=== PATIENT | female | born 1985 | race Caucasian/White ===

== ENCOUNTER → 2016-08-04 | Outpatient (CLI) | payer BC ==
[~2016-08-04] MED LIST: ACHYD1T PO; DCS100C PO; IBP800T PO; METH4TAB PO; NF-METHYLP PO
--- NOTE | 2016-08-04 19:41 | Diagnostic Imaging Report ---
EXAMINATION: OB ultrasound. INDICATION: Followup spine and cord insertion. COMPARISON: 07/13/16. FINDINGS: The placenta is posterior. No placenta previa. The heart rate is 133 beats per minute. The cord insertion visualization is limited because of adjacent limb and position with no definite abnormality. The spine demonstrates no definite abnormality. IMPRESSION: The spine and cord insertion demonstrate no definite abnormality. Dictated by: Dictated on workstation # [id number]
== END ==
LOC: RAD 14:32
PROVIDERS: ATTEND Family Medicine
DX: Z36 Encounter for antenatal screening of mother (principal); Z3A.00 Weeks of gestation of pregnancy not specified
CPT/HCPCS: 76816

== ENCOUNTER 2016-11-28 17:35 | Inpatient (IN) | payer BC ==
[~2016-11-28] VITALS: Ht 160 cm; Wt 61.9 kg
[2016-11-28] VITALS (16 sets, daily range): BP systolic 92–133; BP diastolic 51–81
[2016-11-28] MEDS ORDERED: D5 LR IV SOLUTION 1,000 ML IV SCH (18:14)
[2016-11-28] MEDS ORDERED: MINERAL OIL CONCENTRATE 99.9% 15 ML UDC TOP PRN (18:15)
[2016-11-28 18:21] LABS: BASOPHILS % (AUTO) 0 % (0-10); EOSINOPHILS # (AUTO) 0.3 10^3/uL (0.0-0.3); EOSINOPHILS % (AUTO) 2 % (0-10); LYMPHOCYTES # (AUTO) 2.7 X 10^3 (1.0-4.0); LYMPHOCYTES % (AUTO) 16 % (12-44); MEAN CORPUSCULAR HEMOGLOBIN 31 PG (25-34); MEAN CORPUSCULAR HGB CONC 33 G/DL (32-36); MEAN CORPUSCULAR VOLUME 93 FL (80-99); MEAN PLATELET VOLUME 9.9 FL (7.4-10.4); MONOCYTES # (AUTO) 0.8 X 10^3 (0.0-1.0); MONOCYTES % (AUTO) 5 % (0-12); NEUTROPHILS # (AUTO) 13.2 X 10^3 (1.8-7.8); NEUTROPHILS % (AUTO) 78 % (42-75); PLATELET COUNT 365 10^3/uL (130-400); RED BLOOD COUNT 3.94 10^6/uL (4.35-5.85)
[2016-11-28] MEDS ORDERED: LACTATED RINGERS 1,000 ML IV ONE (18:38)
[2016-11-28] MEDS ORDERED: EPIDURAL (SUFENTA 0.6MCG/ML BUPIVA 0.125%) 100 ML BAG EPI SCH (18:45)
[2016-11-28] MEDS ORDERED: CATHETER FLUSH 10 ML SYR IV PRN (18:45)
[2016-11-28] MEDS ORDERED: NALOXONE 0.4 MG/ML 1 ML (NARCAN) VIAL IV PRN (18:45)
[2016-11-28] MEDS ORDERED: MEPIVACAINE (CARBOCAINE) 2% 50 ML VIAL ONE (19:12)
--- NOTE | 2016-11-28 19:24 | History & Physical-OB ---
OB - Chief Complaint & HPI Date Date of Admission: Date of Admission: November 28, 2016 at 17:50 Chief Complaint/History OB-Reason for Admission/Chief: Rupture of Membranes Hx : 3 Hx Para: 2 Expected Date of Delivery: December 10, 2016 Gestational Age in Weeks: 38 Gestational Age in Days: 2 Admission Nurse Assessment Rev: Yes History of Labs GBS negative Allergies and Home Medications Allergies Coded Allergies: No Known Drug Allergies (Unverified , 01/05/12) Home Medications Docusate Sodium 100 Mg Cap, 100 MG PO BID, #60 Prescribed by: MAUREEN SARAVIA on 08/02/14 0903 Hydrocodone Bit/Acetaminophen 1 Ea Tab, 1-2 EA PO Q4H PRN for PAIN, #60 Prescribed by: MAUREEN SARAVIA on 08/02/14 0903 Ibuprofen 800 Mg Tab, 800 MG PO Q6H, #60 Prescribed by: MAUREEN SARAVIA on 08/02/14 0903 Methylprednisolone 4 Mg Tablet, 8-12 MG PO DAILY, (Reported) Methylprednisolone 4 Mg/Dose-Pack Tab.ds.pk, 0 PO UD, #1 Prescribed by: MAUREEN SARAVIA on 08/02/14 0903 OB - History Hx of Present Care: Yes Ultrasounds: Normal mid trimester US Obstetrical Complications: None Medical Complications: None Obstetrical History Hx : 3 Hx Para: 2 Hx Termination: No Hx Total # of Abortions (Spona: 0 Hx Multiple Gestation: No Hx Stillbirth: No Hx Complication: Yes (Placental eversion, precip delivery) Hx Induced Hypertens: No Hx Maternal Gestational Diabet: No Delivery History Hx Dystocia: No Hx Large For Gestational Age I: No Hx Small for Gestational Age I: No Hx Section: Yes Hx Vaginal Delivery Post C-Sec: No Hx Blood Disorders: No Adverse Rxn to Tranfusion: No Patient Past Medical History No chronic medical problems Social History/Family History HIV/AIDS: No Recent Infectious Disease Expo: No Sexually Transmitted Disease: Yes (HPV) Alcohol Use: Denies Use Recreational Drug Use: No Immunizations Hepatitis A: Yes Hepatitis B: Yes Date of Influenza Vaccine: Aug 02, 2014 OB - Admission Exam Physical Exam Vitals: Vital Signs 11/28/16 11/28/16 17:35 18:25 Temp 97.8 Pulse 86 Resp 18 B/P (MAP) 118/74 O2 Delivery Room Air HEENT: Moist Membranes Heart: Rhythm Normal Lungs: Clear Abdomen: Gravid Extremities: Normal Cervical Dilatation: 4cm Effacement: 50% Station: -1 Membranes: Ruptured Amniotic Fluid: Clear Heart Rate: 130's Accelerations: Accelerations Present Short Term Variability: Present Group Home Variability: Average (6-25) Contractions on Admission: 6-10 Minutes Apart Labs Laboratory Tests Test 11/28/16 18:00 Range/Units White Blood Count 17.0 H 4.3-11.0 10^3/uL Red Blood Count 3.94 L 4.35-5.85 10^6/uL Hemoglobin 12.1 11.5-16.0 G/DL Hematocrit 37 35-52 % Mean Corpuscular Volume 93 80-99 FL Mean Corpuscular Hemoglobin 31 25-34 PG Mean Corpuscular Hemoglobin Concent 33 32-36 G/DL Red Cell Distribution Width 13.0 10.0-14.5 % Platelet Count 365 130-400 10^3/uL Mean Platelet Volume 9.9 7.4-10.4 FL Neutrophils (%) (Auto) 78 H 42-75 % Lymphocytes (%) (Auto) 16 12-44 % Monocytes (%) (Auto) 5 0-12 % Eosinophils (%) (Auto) 2 0-10 % Basophils (%) (Auto) 0 0-10 % Neutrophils # (Auto) 13.2 H 1.8-7.8 X 10^3 Lymphocytes # (Auto) 2.7 1.0-4.0 X 10^3 Monocytes # (Auto) 0.8 0.0-1.0 X 10^3 Eosinophils # (Auto) 0.3 0.0-0.3 10^3/uL Basophils # (Auto) 0.0 0.0-0.1 10^3/uL OB - Assessment/Plan/Diagnosis Assessment Assessment: rupture of membranes (at 38w2d ) Plan Plan: Other (labor management) Other Plan Patient desires epidural OSCAR HERNANDEZ MD November 28, 2016 19:24
[2016-11-28] MEDS ORDERED: fentaNYL INJECTION 100 MCG/2 ML AMP ONE (19:28)
[2016-11-28] MEDS ORDERED: OXYTOCIN/NORMAL SALINE 500 ML IV ONE (19:42)
[2016-11-28] MEDS ORDERED: OXYTOCIN/NORMAL SALINE 500 ML IV SCH ×2 (19:48→21:58)
--- NOTE | 2016-11-28 21:56 | OB Labor & Delivery Record ---
L&D History Date of Service Date of Service: November 28, 2016 History Expected Date of Delivery: December 10, 2016 Gestational Age in Weeks: 38 Hx : 3 Hx Para: 2 Complications Events: Routine care Operative Indications (Cesarea: N/A-Vaginal Delivery Intrapartal Events: None L&D Stage1 Stage One Onset of Labor - Date: November 28, 2016 Onset of Labor - Time: 17:00 Monitors and Tracing Monitor Mode: External Heart Rate: 130 Monitor Decelerations: Early Station: -1 Vital Signs VS - Last 72 Hours, by Label 11/28/16 11/28/16 11/28/16 11/28/16 17:35 18:25 19:30 19:45 Temp 97.8 97.0 Pulse 92 86 82 70 Resp 20 18 18 18 B/P (MAP) 130/81 118/74 119/64 118/78 Pulse Ox 98 100 O2 Delivery Room Air Room Air Room Air Room Air 11/28/16 11/28/16 20:00 20:15 Temp 96.9 Pulse 70 70 Resp 18 18 B/P (MAP) 110/69 111/63 Pulse Ox 98 98 O2 Delivery Room Air Room Air Signs of Distress by FHT Signs of Distress no Rupture of Membranes Spontaneous Ruture of Membrane: Yes Amniotic Membrane Rupture Time: 1650 Amniotic Membrane Fluid Desc.: Clear Amniotic Fluid Membrane Tests: Nitrazine Positive Induction/Anesthesia Epidural Cath Placement - Time: 1927 L&D Stage2 Stage Two Stage II Date: November 28, 2016 Stage II Time: 19:42 Monitors and Tracing Monitor Mode: External Heart Rate: 130 Monitor Accelerations: Uniform Monitor Decelerations: Early Coffee Sommelier Variability: Average (6-10) Short Term Variability: Present Position: Left Occiput Anterior Presentation: Vertex Signs of Distress by FHT Signs of Distress no Cord Descript/Complications Cord Vessel Description: 3 Vessels Delivery Type Delivery Method: Spontaneous Vaginal Anterior Shoulder: Left Episiotomy/Perineal Laceration Laceraction(s)/Extensions: No Condition of Infant Delivery 1 minute Comment: 9 5 minute Comment: 9 Condition of Infant Condition of Infant: Living Exam: No Observed Abnormalities Resuscitation Resuscitation: N/A - Spontaneous Resp L&D Stage3 Stage Three Stage III Date: November 28, 2016 Stage III Time: 19:45 Pictocin Pitocin Administration mu/min: 4 Pitocin ml/hr: 4 Placenta Delivery Placenta Delivery: Spontaneous Delivery Summary Summary Vaginal blood loss >500ml: No 200cc Condition of Delivery Examined: Cervix Examined Post Hemorrhage: No Intervention Required none OSCAR HERNANDEZ MD November 28, 2016 21:56
[2016-11-28] MEDS ORDERED: MEASLES,MUMPS,RUBELLA 1 EA INJ SQ ONE (22:00)
[2016-11-28] MEDS ORDERED: WITCH HAZEL(TUCKS) 40 EA JAR TOP PRN (22:00)
[2016-11-28] MEDS ORDERED: BENZOCAINE/MENTHOL (DERMOPLAST) 56 ML CAN TP PRN (22:00)
[2016-11-28] MEDS ORDERED: TETANUS,DIPTH,PERTUSS P/F (BOOSTRIX) 0.5 ML VIAL IM ONE (22:00)
[2016-11-28] MEDS ORDERED: CATHETER FLUSH 10 ML SYR IV SCH (22:00)
[2016-11-28] MEDS: IBUPROFEN 600 MG (MOTRIN) TAB PO SCH (23:10)
[2016-11-29] VITALS: BP 95/47
[2016-11-29] MEDS: CATHETER FLUSH 10 ML SYR IV SCH ×2 (00:28→05:07)
[2016-11-29 04:02] VITALS: BP 84/49
[2016-11-29] MEDS: IBUPROFEN 600 MG (MOTRIN) TAB PO SCH ×3 (05:07→19:17)
[2016-11-29 06:20] LABS: BASOPHILS # (AUTO) 0.1 10^3/uL (0.0-0.1); BASOPHILS % (AUTO) 0 % (0-10); EOSINOPHILS # (AUTO) 0.3 10^3/uL (0.0-0.3); EOSINOPHILS % (AUTO) 2 % (0-10); LYMPHOCYTES % (AUTO) 26 % (12-44); MEAN CORPUSCULAR HEMOGLOBIN 31 PG (25-34); MEAN CORPUSCULAR HGB CONC 33 G/DL (32-36); MEAN CORPUSCULAR VOLUME 94 FL (80-99); MEAN PLATELET VOLUME 9.4 FL (7.4-10.4); MONOCYTES # (AUTO) 0.9 X 10^3 (0.0-1.0); MONOCYTES % (AUTO) 6 % (0-12); NEUTROPHILS % (AUTO) 66 % (42-75); PLATELET COUNT 338 10^3/uL (130-400); RED BLOOD COUNT 3.38 10^6/uL (4.35-5.85); RED CELL DISTRIBUTION WIDTH 12.9 % (10.0-14.5); WHITE BLOOD COUNT 15.3 10^3/uL (4.3-11.0)
--- NOTE | 2016-11-29 07:09 | Progress Note (SOAP) ---
Subjective Subjective/Events-last exam No current complaints. Vaginal bleeding following delivery is very light. Objective Exam Vital Signs Date Time Temp Pulse Resp B/P (MAP) Pulse Ox O2 Delivery O2 Flow Rate FiO2 11/29/16 04:02 97.7 55 18 84/49 97 Room Air 11/29/16 00:00 97.4 60 18 95/47 99 Room Air 11/28/16 23:00 61 18 106/51 Room Air 11/28/16 22:40 68 18 101/51 Room Air 11/28/16 22:25 63 18 109/66 Room Air 11/28/16 22:10 98.6 70 18 114/60 Room Air 11/28/16 21:42 74 18 133/58 Room Air 11/28/16 21:30 78 18 123/58 Room Air 11/28/16 21:15 96.9 63 18 109/71 100 Room Air 11/28/16 21:00 70 18 102/56 98 Room Air 11/28/16 20:45 62 18 92/58 98 Room Air 11/28/16 20:30 71 18 95/61 99 Room Air 11/28/16 20:15 96.9 70 18 111/63 98 Room Air 11/28/16 20:00 70 18 110/69 98 Room Air 11/28/16 19:45 70 18 118/78 100 Room Air 11/28/16 19:30 97.0 82 18 119/64 98 Room Air 11/28/16 18:25 86 18 118/74 Room Air 11/28/16 17:35 97.8 92 20 130/81 Room Air I & O 11/29/16 07:00 Intake Total 1700 ml Output Total 700 ml Balance 1000 ml Capillary Refill : Other comments uterus firm Results Lab Laboratory Tests 11/28/16 18:00: White Blood Count 17.0H, Red Blood Count 3.94L, Hemoglobin 12.1, Hematocrit 37, Mean Corpuscular Volume 93, Mean Corpuscular Hemoglobin 31, Mean Corpuscular Hemoglobin Concent 33, Red Cell Distribution Width 13.0, Platelet Count 365, Mean Platelet Volume 9.9, Neutrophils (%) (Auto) 78H, Lymphocytes (%) (Auto) 16 , Monocytes (%) (Auto) 5, Eosinophils (%) (Auto) 2, Basophils (%) (Auto) 0, Neutrophils # (Auto) 13.2H, Lymphocytes # (Auto) 2.7, Monocytes # (Auto) 0.8, Eosinophils # (Auto) 0.3, Basophils # (Auto) 0.0 11/29/16 06:10: White Blood Count 15.3H, Red Blood Count 3.38L, Hemoglobin 10.3L, Hematocrit 32L , Mean Corpuscular Volume 94, Mean Corpuscular Hemoglobin 31, Mean Corpuscular Hemoglobin Concent 33, Red Cell Distribution Width 12.9, Platelet Count 338, Mean Platelet Volume 9.4, Neutrophils (%) (Auto) 66, Lymphocytes (%) (Auto) 26, Monocytes (%) (Auto) 6, Eosinophils (%) (Auto) 2, Basophils (%) (Auto) 0, Neutrophils # (Auto) 10.0H, Lymphocytes # (Auto) 4.0, Monocytes # (Auto) 0.9, Eosinophils # (Auto) 0.3, Basophils # (Auto) 0.1 Assessment/Plan Assessment/Plan Assess & Plan/Chief Complaint 1. S/P day 1 -routine PP care orders. -suspect dc in the am of 11/30 Clinical Quality Measures DVT/VTE Risk/Contraindication: Risk Factor Score Per Nursin RFS Level Per Nursing on Admit: 2=Moderate OSCAR HERNANDEZ MD November 29, 2016 07:09
[2016-11-29 08:15] VITALS: BP 110/72
[2016-11-29] MEDS: HYDROcodone/APAP 5 MG/325 MG (LORTAB) TAB PO PRN ×2 (10:09→16:42)
[2016-11-29] MEDS: PRENATAL VITAMIN 1 EA TAB PO SCH (10:09)
--- NOTE | 2016-11-29 12:01 | Anesthesia-Regional Post-Op ---
Regional Patient Condition Mental Status: Alert, Oriented x3 Circulation: Same as Pre-Op Headache: Absent Sensation: Full Recovery Motor Block: Absent Post Op Complications Complications None Follow Up Care/Instructions Patient Instructions None needed. Anesthesia/Patient Condition Patient is doing well, no complaints, stable vital signs, no apparent adverse anesthesia problems. No complications reported per nursing. KOSTAS GARNER CRNA November 29, 2016 12:01
[2016-11-29 12:47] VITALS: BP 109/76
[2016-11-29 20:45] VITALS: BP 114/74
[2016-11-30 01:38] VITALS: BP 95/60
[2016-11-30] MEDS: IBUPROFEN 600 MG (MOTRIN) TAB PO SCH ×2 (01:38→08:44)
[2016-11-30] MEDS: HYDROcodone/APAP 5 MG/325 MG (LORTAB) TAB PO PRN (06:53)
--- NOTE | 2016-11-30 07:31 | Discharge Summary ---
Diagnosis/Chief Complaint Date of Admission November 28, 2016 at 17:50 Date of Discharge November 30, 2016 Discharge Date: November 30, 2016 Admission Diagnosis Admission Diagnosis 1. Intrauterine at 38 weeks Discharge Diagnosis 1. Intrauterine at 38 weeks gestation Reason Hospital Visit 31-year-old 3 now term 3 female who initially presented at 38 weeks 2 days gestation with ruptured membranes. She was noted to be rafael and ultimately was admitted for her labor. Discharge Summary-OBS Procedures 1. Epidural per anesthesia 2. Spontaneous vaginal delivery Discharge Physical Examination Allergies: Coded Allergies: No Known Drug Allergies (Unverified , 01/05/12) Vitals & I&Os Vital Signs Date Time Temp Pulse Resp B/P (MAP) Pulse Ox O2 Delivery O2 Flow Rate FiO2 11/30/16 01:38 97.3 69 18 95/60 97 Room Air General Appearance: No Acute Distress Respiratory: Clear to Auscultation Cardiovascular: Regular Rate Abdominal: Soft (with uterus firm) Hospital Course patient was admitted on November 28, 2016 with ruptured membranes and in labor. She ultimately required Pitocin augmentation to achieve adequate labor pattern. Ultimately she went on to completion and delivered a term viable female during the evening of November 28, 2016see labor and delivery summary. Following delivery patient underwent routine care orders. She was noted to have a predelivery hemoglobin of 12.1 and on November 29 was noted to have a hemoglobin of 10.3. Patient had very minimal vaginal bleeding and was described as light by patient. She was ambulatory and was without any shortness of breath or leg pain. She tolerated regular diet. She was felt ready for dismissal in the morning of November 30, 2016. She will follow up in 6 weeks with myself. Discharge Instructions to patient/family Please see electonic discharge instructions given to patient. Discharge Medications Reviewed and agree with Discharge Medication list on patient's Discharge Instruction sheet Clinical Quality Measures DVT/VTE Risk/Contraindication: Risk Factor Score Per Nursin RFS Level Per Nursing on Admit: 2=Moderate OSCAR HERNANDEZ MD November 30, 2016 07:31
--- NOTE | 2016-11-30 07:34 | Discharge Inst-Women's Service ---
Discharge Inst-Women's Serv Depart Medication/Instructions New, Converted or Re-Newed RX: Transmitted to Pharmacy Consults/Follow Up Additional Follow Up: Yes (Dr Hernandez in 6 weeks.) Activity Activity: Activity as Tolerated Driving Instructions: You May Drive Nothing Inside Vagina: No [place] (for 6 weeks) Diet Discharge Diet: No Restrictions Return to The Hospital For: as below Symptoms to Report to : Bleeding Excessive, Pain Increased, Fever Over 101 Degrees F, Vaginal Discharge Foul For Any Problems or Questions: Contact Your Physician OSCAR HERNANDEZ MD November 30, 2016 07:34
[2016-11-30 07:40] VITALS: BP 111/70
[2016-11-30] MEDS ORDERED: TETANUS,DIPTH,PERTUSS P/F (BOOSTRIX) 0.5 ML VIAL IM ONE (08:39)
[2016-11-30] MEDS: PRENATAL VITAMIN 1 EA TAB PO SCH (08:44)
== END 2016-11-30 11:00 | disposition home or self-care (01) | DRG 775 ==
LOC: WSo 17:35 → LDRP 17:35 → WSo 17:50 → LDRP 17:50
PROVIDERS: ADMIT Family Medicine; ATTEND Family Medicine
PROC: 10E0XZZ Delivery of Products of Conception, External Approach (ICD-10-PCS; principal; 2016-11-28)
DX: O80 Encounter for full-term uncomplicated delivery (principal); Z3A.38 38 weeks gestation of pregnancy; Z37.0 Single live birth; Z23 Encounter for immunization
CPT/HCPCS: 36415; 85025; 86850; 86900; 86901; 90715; 99212

== ENCOUNTER → 2018-11-20 | Outpatient (CLI) | payer BC ==
--- NOTE | 2018-11-20 16:35 | Diagnostic Imaging Report ---
INDICATION: Neck pain radiating into the left arm. TIME OF EXAM: 02:58 p.m. Three-view cervical spine were obtained. There is slight reversal of the normal cervical lordotic curvature. Vertebral body heights and disc spaces are fairly well-maintained. No fracture is seen. There may be very slight anterolisthesis of C4 on C5. Prevertebral tissues are normal. Odontoid is intact. IMPRESSION: Reversal of normal cervical curvature. No acute bony abnormality is detected. Dictated by: Dictated on workstation # [id number]
== END ==
LOC: RAD 14:33
PROVIDERS: ATTEND Family Medicine
DX: M54.12 Radiculopathy, cervical region (principal)
CPT/HCPCS: 72040

== ENCOUNTER → 2018-11-28 | Outpatient (CLI) | payer BC ==
--- NOTE | 2018-11-28 15:01 | Diagnostic Imaging Report ---
CLINICAL INDICATION: Patient with neck pain, left forearm and hand numbness. EXAM: MRI of the cervical spine performed without IV contrast. Sequences include sagittal T2, sagittal T1, sagittal T2 fat-sat, axial T2, and axial 3D merge. COMPARISON: X-ray of the cervical spine dated 11/20/2018. FINDINGS: Again seen straightening of the cervical spine posture. There is no acute cervical spine fracture or dislocation. Limited visualization of the posterior fossa shows no significant abnormality. Cervical spinal cord has normal cord caliber with no abnormal signal. There is motion artifact which obscures the axial T2 sequence limiting evaluation. There is no significant paraspinal soft tissue abnormality. C1-C2: Unremarkable. C2-C3: There is no significant central spinal canal or neural foramen narrowing. C3-C4: There is a minimal-sized anterior disc bulge. There is no significant central spinal canal or neural foramen narrowing. C4-C5: There is a subtle posterior disc bulge and small anterior disc bulge. There is no significant central spinal canal or neural foramen narrowing. C5-C6: There is a diffuse disc bulge with small bilateral uncinate spurs. There is no significant central canal or neural foramen narrowing. C6-C7: There is a diffuse disc bulge with broad posterior and left subarticular disc extrusion/herniation. There is moderate central canal narrowing and concern for severe encroachment upon the left subarticular region. There is no significant right neural foramen narrowing. C7-T1: Unremarkable. IMPRESSION: 1: There is a C6-C7 diffuse disc bulge with left subarticular disc extrusion/herniation with concern for severe narrowing of the left subarticular region. There is moderate C6-C7 central canal narrowing. 2: The remainder of the cervical spine shows mild degenerative changes, as described above. There are no other areas with significant central canal or neural foramen narrowing. Dictated by: Dictated on workstation # [id number]
== END ==
LOC: RAD 13:35
PROVIDERS: ATTEND Family Medicine
DX: M50.121 Cervical disc disorder at C4-C5 level with radiculopathy (principal); M48.02 Spinal stenosis, cervical region; M47.22 Other spondylosis with radiculopathy, cervical region
CPT/HCPCS: 72141

== ENCOUNTER → 2019-08-28 | Outpatient (CLI) | payer BC ==
--- NOTE | 2019-08-28 12:59 | Diagnostic Imaging Report ---
PROCEDURE: US Non-ob pelvis comp/trans. TECHNIQUE: Multiple realtime grayscale images were obtained of the pelvis in various projections endovaginally. Transabdominal imaging was also performed. INDICATION: Pelvic pain. FINDINGS: The previous pelvic ultrasound exam of 11/25/2011 noted two mildly complicated cysts associated with the right ovary. There was also a small amount of free fluid. On this exam, there is a benign-appearing 1.7 x 1.1 x 1.9 cm cyst associated with the right ovary. The left ovary is generally unremarkable. There is good blood flow to each ovary and there is no sign of torsion. There is no solid pelvic mass or free fluid collection evident. However, there were a few prominent vessels on each side of the adnexa. These findings are nonspecific. The possibility of pelvic congestion syndrome should be considered. The uterus is nongravid, retroflexed, and not enlarged measuring 7.9 x 4.6 x 5.4 cm. The endometrium is slightly thickened measuring 8 mm (normal 5 mm or less). This finding is nonspecific. Correlation with the patient's menstrual cycle would be recommended. There is no focal mass involving the uterus to suggest a fibroid. IMPRESSION: 1. There is a small benign-appearing cyst associated with the right ovary. There is no acute pelvic abnormality noted, otherwise. 2. There are a few prominent vessels on each side of the adnexa. This finding is nonspecific but could be related to pelvic congestion syndrome. Clinical follow-up is recommended. Dictated by: Dictated on workstation # [id number]
== END ==
LOC: RAD 10:41
PROVIDERS: ATTEND Family Medicine
DX: N83.201 Unspecified ovarian cyst, right side (principal)
CPT/HCPCS: 76830; 76856

== ENCOUNTER → 2023-01-30 | Outpatient (CLI) | payer BC ==
--- NOTE | 2023-01-30 14:14 | Diagnostic Imaging Report ---
PROCEDURE: US OB SINGLE FETUS <14 WKS. TECHNIQUE: Multiple real-time grayscale images were obtained over the gravid uterus in various projections. INDICATION: dating. Uterus measures 10.5 x 6.6 x 7.5 cm. There is a single live IUP measuring approximately 9 weeks 2 days gestational age. heart rate was recorded at 172 bpm. The gestational sac appears to be normal in shape. No marshall-gestational sac hemorrhage is detected. Maternal adnexa demonstrate right ovary measures 2.6 x 2.1 x 2.1 cm. Right ovary is unremarkable. Left ovary cannot be visualized due to overlying bowel gas. IMPRESSION: Single live IUP 9 weeks 2 days gestational age with an estimated date of confinement sonographically of 09/02/2023. No complicating features are detected. Dictated by: Dictated on workstation # [id number]
== END ==
LOC: RAD 12:00
PROVIDERS: ATTEND Family Medicine
DX: Z36.87 Encounter for antenatal screening for uncertain dates (principal); Z3A.09 9 weeks gestation of pregnancy
CPT/HCPCS: 76801

== ENCOUNTER → 2023-04-17 | Outpatient (CLI) | payer BC ==
--- NOTE | 2023-04-17 20:31 | Diagnostic Imaging Report ---
INDICATION: Anatomical survey. TECHNIQUE: Multiple real-time grayscale images were obtained over the gravid uterus. COMPARED with study 01/30/2023. FINDINGS: Martel viable intrauterine gestation is in cephalic presentation. The anterior placenta appeared normal. The heart rate 156 bpm. Measurements correlate with an average age 21 weeks 0 day. Anatomical survey was normal. The cervix 3.6 cm, nondilated. The tip of the placenta is 7 cm from a closed os. Biometrical measurements are as follows: Biparietal 4.91 cm, age 20 weeks 6 days. Head circumference 18.29 cm, age 20 weeks 5 days. Abdominal circumference 15.31 cm, age 20 weeks 4 days. Femur length 3.64 cm, age 21 weeks 4 days. Sonographic estimate age: 21 weeks 0 days. Sonographic estimated date of delivery: 08/28/2023. Estimated Weight: 389 gm (+/- 57 gm). LMP percentile: 82%. heart rate: 156 beats per minute. number: 1 of 1. IMPRESSION: 21 weeks 0 day martel viable IUP with no pathological finding identified. Dictated on workstation # [id number]
== END ==
LOC: RAD 09:58
PROVIDERS: ATTEND Family Medicine
DX: Z36.9 Encounter for antenatal screening, unspecified (principal); Z3A.21 21 weeks gestation of pregnancy
CPT/HCPCS: 76805